=== PATIENT | female | born 1965 | race African-American/Black ===

== ENCOUNTER 2021-11-21 21:41 | Observation (INO) | payer SELFPAY ==
[~2021-11-21] VITALS: Ht 160 cm; Wt 114.6 kg
--- NOTE | 2021-11-21 21:54 | PHYS DOC ---
General Adult HPI: HPI: Patient is a 56 year old here with report of left hand numbness and tingling which began over 24 hours ago. The symptoms have progressively improved, now she reports some mild tingling in her pinky finger and her ring finger. 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 She reports that at 3 PM this afternoon she developed what she felt was some mild drooping of her left face. She reports that she felt like she was "drooling." Symptoms lasted a few seconds and resolved. She denies dizziness, headache, vision loss, fall, head injury. She denies neck or back pain. She denies chest pain, dyspnea, palpitations. She denies difficulty ambulating. She is extremely hypertensive on arrival. She admits that she has a history of hypertension and high cholesterol, she purposely stopped taking her blood pressure medications and cholesterol medications over 5 months ago. She reports that she stopped taking them because she wanted to try to modify her diet and lifestyle in order to improve these problems, but she has not done any of these yet. She does not routinely check her blood pressure at home. She has not contacted her primary care physician to discuss this decision. She denies any previous similar neuro symptoms. Review of Systems: Review of Systems: Constitutional: Denies fever or chills. [] Eyes: Denies change in visual acuity. Denies vision loss HENT: Denies nasal congestion or sore throat. [] Respiratory: Denies cough or shortness of breath. [] Cardiovascular: Denies chest pain or edema. [] GI: Denies abdominal pain, nausea, vomiting Musculoskeletal: Denies back pain or joint pain. [] Integument: Denies rash. [] Neurologic: Denies headache, focal weakness. Denies dizziness, vertigo, head injury, fall, syncope. She reports brief episode of left lower facial weakness, left lower facial tingling and left hand numbness and tingling. Psychiatric: Denies depression or anxiety. [] Heart Score: C/O Chest Pain: No Risk Factors: Risk Factors: DM, Current or recent (<one month) smoker, HTN, HLP, family history of CAD, obesity. Risk Scores: Score 0 - 3: 2.5% MACE over next 6 weeks - Discharge Home Score 4 - 6: 20.3% MACE over next 6 weeks - Admit for Clinical Observation Score 7 - 10: 72.7% MACE over next 6 weeks - Early Invasive Strategies Physical Exam: PE: Constitutional: Well developed, well nourished, no acute distress, non-toxic appearance. [] HENT: Normocephalic, atraumatic, oropharynx is patent and clear, mucous memories are moist. No evidence of facial asymmetry, facial trauma, facial contusion or erythema. TMs are clear bilaterally. Eyes: PERRL, EOMI, conjunctiva normal, no discharge. No nystagmus. Neck: Normal range of motion, no tenderness, supple, no stridor. Achy midline, no JVD Cardiovascular:Heart rate regular rhythm, two radial +2 posterior tibial pulses bilaterally Lungs & Thorax: Bilateral breath sounds clear to auscultation [] Abdomen: Abdomen soft, nondistended, nontender to palpation Skin: Warm, dry, no erythema, no rash. [] Back: No tenderness, no CVA tenderness. [] Extremities: No tenderness, no cyanosis, no clubbing, ROM intact, no edema. No calf tenderness Neurologic: She is awake, alert, oriented x3, cranial nerves II through XII grossly intact, 5 out of 5 motor strength all four extremities, sensation is grossly intact, no limb ataxia, no dysmetria, no pronator drift, speech is clear and fluent, no obvious visual deficit Psychologic: Affect normal, judgement normal, mood normal. [] EKG: EKG: EKG is interpreted at 2154 Rhythm is sinus Rate is 66 bpm [place] is normal No STEMI Radiology/Procedures: Radiology/Procedures: IMAGING REPORT Signed PATIENT: KANE STAFFORD DACCOUNT: [id number] : 1965 LOCATION: ER AGE: 56 SEX: F EXAM STATUS: PRE ER ORD. PHYSICIAN: ODILIA MERCER DO REASON: left hand tingling PROCEDURE: CT HEAD WO CONTRAST Exam: CT head INDICATION: Left hand tingling TECHNIQUE: Sequential axial images through the head were obtained without the administration of IV contrast. Exposure: One or more of the following in the visualized dose reduction techniques were utilized for this examination: 1. Automated exposure control 2. Adjustment of the MA and/or KV according to patient size 3. Use of iterative of reconstructive technique Comparisons: None FINDINGS: No focal parenchymal lesion or hemorrhage is identified. There is no midline shift or sulcal effacement. Mild patchy hypodensity in the periventricular white matter. No acute vascular territory infarction is identified. Mcdonnell-white distinction is preserved. The ventricular system is within normal limits without compression hydrocephalus. The basal cisterns are well maintained. The visualized portions of the paranasal sinuses and mastoid air cells are well- pneumatized. No acute fractures. IMPRESSION: Mild small vessel ischemic change, technically age indeterminate without recent prior imaging. Electronically signed by: Salvador Mcarthur MD (11/21/2021 11:14 PM) [facility] DICTATED and SIGNED BY: SALVADOR MCARTHUR MD DATE: 11/21/21 [id number] 0 Course & Med Decision Making: Course & Med Decision Making Pertinent Labs and Imaging studies reviewed. (See chart for details) Patient had already taken four baby aspirin earlier today. Her blood pressure was initially quite high, but her blood pressure improved spontaneously without intervention. I was able to retrieve her medication list from a local pharmacy. She had previously been on the following regimen: Lisinopril/HCTZ, 20/12.5 mg, carvedilol 6.25 mg twice daily, amlodipine [address] head shows microvascular ischemic disease. She has nonfocal neurologic exam. I have recommended hospitalization, serial neuro exams, neurology consultation and MRI in the morning. She is comfortable with this plan. She is excepted for admission by Dr. White. Cyndi Disclaimer: Cyndi Disclaimer: This electronic medical record was generated, in whole or in part, using a voice recognition dictation system. Departure Departure Impression: Primary Impression: TIA (transient ischemic attack) Additional Impression: Uncontrolled hypertension Disposition: ADMITTED INPATIENT Admitting Physician: ASIA (Dr. White) Condition: STABLE ODILIA MERCER DO Nov 21, 2021 21:53
[2021-11-21 22:33] LABS: BASO # 0.1 x10^3/uL (0.0-0.2); BASO % 1 % (0-3); EOS # 0.2 x10^3/uL (0.0-0.7); EOS % 2 % (0-3); HEMATOCRIT 40.1 % (36.0-47.0); HEMOGLOBIN 12.8 g/dL (12.0-15.5); LYMPH # 4.1 x10^3/uL (1.0-4.8); LYMPH % 34 % (24-48); MEAN CORPUSCULAR HEMOGLOBIN 30 pg (25-35); MEAN CORPUSCULAR HGB CONC 32 g/dL (31-37); MEAN CORPUSCULAR VOLUME 96 fL (79-100); MONO # 0.8 x10^3/uL (0.0-1.1); MONO % 7 % (0-9); NEUT # 6.8 x10^3/uL (1.8-7.7); NEUT % 57 % (31-73); PLATELET COUNT 231 x10^3/uL (140-400); RED BLOOD COUNT 4.19 x10^6/uL (3.50-5.40); RED CELL DISTRIBUTION WIDTH 15.2 % (11.5-14.5); WHITE BLOOD COUNT 12.1 x10^3/uL (4.0-11.0)
[2021-11-21 22:48] LABS: CALCIUM 8.8 mg/dL (8.5-10.1); CREATININE 0.9 mg/dL (0.6-1.0); GFR 64.5; POTASSIUM 4.1 mmol/L (3.5-5.1)
[2021-11-21 22:50] LABS: MAGNESIUM 2.1 mg/dL (1.8-2.4)
--- NOTE | 2021-11-21 23:17 | RAD ---
Exam: CT head INDICATION: Left hand tingling TECHNIQUE: Sequential axial images through the head were obtained without the administration of IV co ntrast. Exposure: One or more of the following in the visualized dose reduction techniques were utilized for this examination: 1. Automated exposure control 2. Adjustment of the MA and/or KV according to patient size 3. Use of iterative of reconstructive technique Comparisons: None FINDINGS: No focal parenchymal lesion or hemorrhage is identified. There is no midline shift or sulcal effaceme nt. Mild patchy hypodensity in the periventricular white matter. No acute vascular territory infarction i s identified. Mcdonnell-white distinction is preserved. The ventricular system is within normal limits without compression hydrocephalus. The basal cisterns are well maintained. The visualized portions of the paranasal sinuses and mastoid air cells are well-pneumatized. No acute fractures. IMPRESSION: Mild small vessel ischemic change, technically age indeterminate without recent prior imaging. Electronically signed by: Salvador Estrada MD (11/21/2021 11:14 PM) [facility]
[2021-11-21] MEDS ORDERED: hydroCHLOROthiazide 12.5 MG CAPSULE PO ONE (23:30)
[2021-11-21] MEDS ORDERED: CARVEDILOL 6.25 MG TABLET. PO ONE (23:30)
[2021-11-21] MEDS ORDERED: LISINOPRIL 10 MG TABLET PO ONE (23:30)
--- NOTE | 2021-11-22 01:31 | EKG ---
[facility] [address] [place] [address] Test Date: 2021-11-21 Test Time: 21:52:42 Pat Name: KANE STAFFORD Department: Room: Gender: F Coal Equipment Operator: : 1965 Requested By: ODILIA MERCER Order Number: [id number] Reading MD: Marquez Guzmán Measurements Intervals [place] Rate: 66 P: NV: QRS: 26 QRSD: 78 T: 11 QT: 354 QTc: 373 Interpretive Statements SINUS ARRHYTHMIA Electronically Signed On 11-23-2021 17:51:42 BOILERMAKER by Marquez Guzmán
[2021-11-22 03:40] VITALS: BP 173/79
--- NOTE | 2021-11-22 05:07 | NUR ---
Pt arrived to room 672 per cart pt ambulated from cart to restroom, pt tele monitor applied vs obtained pt denied pain at this time p oriented to surroundings and call light. Poc explained vs obtained and stable will resume care and continue to monitor pt.
[2021-11-22 07:00] VITALS: BP 167/75
[2021-11-22] MEDS ORDERED: ONDANSETRON PF 4 MG/2 ML VIAL. IVP PRN (07:15)
--- NOTE | 2021-11-22 08:16 | RAD ---
EXAMINATION: US DPLX CAROTID BILAT CLINICAL HISTORY: TIA. TECHNIQUE: Evaluation of the bilateral carotid, vertebral, and subclavian arteries performed with gra y scale, color Doppler, and spectral Doppler sonographic imaging. COMPARISON: None FINDINGS: CCA Peak Systolic Velocity (cm/sec): Right: 97 Left: 86 ICA Peak Systolic Velocity (cm/sec): Right: 96 Left: 116 ICA End Diastolic Velocity (cm/sec): Right: 24 Left: 42 ECA Peak Systolic Velocity (cm/sec): Right: 118 Left: 107 Vertebrals (cm/sec): Right: 62 Left: 40 Subclavians (cm/sec): Right: 92 Left: 89 ICA/CCA Systolic Velocity Ratio: Right: 1.0 Left: 1.4 Plaque distribution: Minimal scattered atherosclerotic plaque bilaterally. IMPRESSION: No evidence of hemodynamically significant stenosis in the bilateral carotid arterial systems. Electronically signed by: Vahe Mae DO (11/22/2021 8:14 AM) [place]
--- NOTE | 2021-11-22 10:34 | PDOC1 ---
History and Physical Date of Admission Date of Admission DATE: 11/22/21 TIME: 10:13 Source Source: Chart review, Patient History of Present Illness History of Present Illness Ms. Metzger, is a 56 year old admti for left hand numbness and tingling nwo almost 2 days ago. Started with face dropping that improved quickly, drooled for minutes, and went away. still left arm weak, but mild tingling in her pinky finger and her ring finger she is guarding that hand, is right-handed. She denies dizziness, headache, vision loss, fall, head injury. She denies neck or back pain. She denies chest pain, dyspnea, palpitations. She denies difficulty ambulating. She was extremely hypertensive int he ER. She admits that she has a history of hypertension and high cholesterol, she purposely stopped taking her blood pressure medications and cholesterol medications in an attempt to lose weight, eat better and get off meds, this was not successful. she only takes 2 or 3 motrin a day for foot pain with working at [employer] her primary care in in [place], that is where her boyfriend lives, her mom is with her today Past Medical History Cardiovascular: HTN, Hyperlipidemia Pulmonary: No pertinent hx GI: No pertinent hx Heme/Onc: No pertinent hx Musculoskeletal: low back pain, Osteoarthritis (feet, takes motrin daily when working at [employer]) Rheumatologic: No pertinent hx Endocrine: Other (pre-DM2) Dermatology: No pertinent hx Past Surgical History Past Surgical History: No pertinent history Family History Family History: No Significant Social History Smoke: No ALCOHOL: social (1 or 2 a few times a week) Current Problem List Problem List Problems Medical Problems: (1) TIA (transient ischemic attack) Status: Acute (2) Uncontrolled hypertension Status: Acute Current Medications Current Medications Current Medications Amlodipine Besylate (Norvasc) 10 mg 1X ONCE PO ; Start 11/21/21 at 23:30; Stop 11/22/21 at 02:28; Status DC Carvedilol (Coreg) 6.25 mg 1X ONCE PO ; Start 11/21/21 at 23:30; Stop 11/22/21 at 02:28; Status DC Lisinopril (Prinivil) 20 mg 1X ONCE PO ; Start 11/21/21 at 23:30; Stop 11/22/21 at 02:28; Status DC Hydrochlorothiazide (Microzide) 12.5 mg 1X ONCE PO ; Start 11/21/21 at 23:30; Stop 11/22/21 at 02:28; Status DC Ondansetron HCl (Zofran) 4 mg PRN Q8HRS PRN IVP NAUSEA/VOMITING; Start 11/22/21 at 07:15; Stop 11/23/21 at 07:14 Active Scripts Active Reported No Known Medications Prior To Admisstion (Info) Each 1 Each Allergies Allergies: Coded Allergies: hydrocodone (Verified Allergy, Intermediate, ITCHING, 11/21/21) ROS General: No: Chills, Night Sweats, Fatigue, Malaise, Appetite, Other PSYCHOLOGICAL ROS: No: Anxiety, Behavioral Disorder, Concentration difficultie, Decreased libido, Depression, Disorientation, Hallucinations, Hostility, Irritablity, Memory difficulties, Mood Swings, Obsessive thoughts, Physical abuse, Sexual abuse, Sleep disturbances, Suicidal ideation, Other Eyes: No Blurry vision, No Decreased vision, No Double vision, No Dry eyes, No Excessive tearing, No Eye Pain, No Itchy Eyes, No Loss of vision, No Photophobia, No Scotomata, No Uses contacts, No Uses glasses, No Other HEENT: YES: Heacaches; No: Visual Changes, Hearing change, Nasal congestion, Nasal discharge, Oral lesions, Sinus pain, Sore Throat, Epistaxis, Sneezing, Snoring, Tinnitus, Vertigo, Vocal changes, Other Respiratory: No: Cough, Hemoptysis, Orthopnea, Pleuritic Pain, Shortness of breath, SOB with excertion, Sputum Changes, Stridor, Tachypnea, Wheezing, Other Cardiovascular: No Chest Pain, No Palpitations, No Orthopnea, No Paroxysmal Noc. Dyspnea, No Edema, No Lt Headedness, No Other Gastrointestinal: No Nausea, No Vomiting, No Abdominal Pain, No Diarrhea, No Constipation, No Melena, No Hematochezia, No Other Genitourinary: No Dysuria, No Frequency, No Incontinence, No Hematuria, No Retention, No Discharge, No Urgency, No Pain, No Flank Pain, No Other, No , No , No , No , No , No , No Musculoskeletal: Yes Muscular Weakness (left hand); No Gait Disturbance, No Joint Pain, No Joint Stiffness, No Joint Swelling, No Muscle Pain, No Pain In:, No Swelling In:, No Other Neurological: No Behavorial Changes, No Bowel/Bladder ControlChng, No Confusion, No Dizziness, No Headaches, No Impaired Coord/balance, No Memory Loss, No Numbness/Tingling, No Seizures, No Speech Problems, No Tremors, No Visual Changes, No Weakness, No Other Skin: Yes Dry Skin, Yes Skin Lesion Changes (toes, ); No Eczema, No Hair Changes, No Lumps, No Mole Changes, No Mottling, No Nail Changes, No Pruritus, No Rash, No Other, No Acne Physical Exam General: Alert, Oriented X3, Cooperative, No acute distress HEENT: Atraumatic, Mucous membr. moist/pink Lungs: Clear to auscultation Heart: RRR, no gallops, murmurs Abdomen: Normal bowel sounds Male Genitals Exam: normal genitalia Rectal Exam: not examined Extremities: No cyanosis, No edema, Normal pulses, Other (left hand weaknes,s numb) Skin: No breakdown, Other (some slight discolation of all toes, near nail bed) Neuro: Normal speech Psych/Mental Status: Mental status NL, Mood NL Vitals Vitals Vital Signs Date Time Temp Pulse Resp B/P (MAP) Pulse Ox O2 Delivery O2 Flow Rate FiO2 11/22/21 07:00 98.3 74 16 167/75 (105) 96 Room Air 98.3 Labs Labs Laboratory Tests Test 11/21/21 22:15 White Blood Count 12.1 x10^3/uL (4.0-11.0) Red Blood Count 4.19 x10^6/uL (3.50-5.40) Hemoglobin 12.8 g/dL (12.0-15.5) Hematocrit 40.1 % (36.0-47.0) Mean Corpuscular Volume 96 fL (79-100) Mean Corpuscular Hemoglobin 30 pg (25-35) Mean Corpuscular Hemoglobin Concent 32 g/dL (31-37) Red Cell Distribution Width 15.2 % (11.5-14.5) Platelet Count 231 x10^3/uL (140-400) Neutrophils (%) (Auto) 57 % (31-73) Lymphocytes (%) (Auto) 34 % (24-48) Monocytes (%) (Auto) 7 % (0-9) Eosinophils (%) (Auto) 2 % (0-3) Basophils (%) (Auto) 1 % (0-3) Neutrophils # (Auto) 6.8 x10^3/uL (1.8-7.7) Lymphocytes # (Auto) 4.1 x10^3/uL (1.0-4.8) Monocytes # (Auto) 0.8 x10^3/uL (0.0-1.1) Eosinophils # (Auto) 0.2 x10^3/uL (0.0-0.7) Basophils # (Auto) 0.1 x10^3/uL (0.0-0.2) Sodium Level 145 mmol/L (136-145) Potassium Level 4.1 mmol/L (3.5-5.1) Chloride Level 107 mmol/L (98-107) Carbon Dioxide Level 25 mmol/L (21-32) Anion Gap 13 (6-14) Blood Urea Nitrogen 17 mg/dL (7-20) Creatinine 0.9 mg/dL (0.6-1.0) Estimated GFR (Cockcroft-Gault) 64.5 Glucose Level 85 mg/dL (70-99) Calcium Level 8.8 mg/dL (8.5-10.1) Magnesium Level 2.1 mg/dL (1.8-2.4) Laboratory Tests Test 11/21/21 22:15 White Blood Count 12.1 x10^3/uL (4.0-11.0) Red Blood Count 4.19 x10^6/uL (3.50-5.40) Hemoglobin 12.8 g/dL (12.0-15.5) Hematocrit 40.1 % (36.0-47.0) Mean Corpuscular Volume 96 fL (79-100) Mean Corpuscular Hemoglobin 30 pg (25-35) Mean Corpuscular Hemoglobin Concent 32 g/dL (31-37) Red Cell Distribution Width 15.2 % (11.5-14.5) Platelet Count 231 x10^3/uL (140-400) Neutrophils (%) (Auto) 57 % (31-73) Lymphocytes (%) (Auto) 34 % (24-48) Monocytes (%) (Auto) 7 % (0-9) Eosinophils (%) (Auto) 2 % (0-3) Basophils (%) (Auto) 1 % (0-3) Neutrophils # (Auto) 6.8 x10^3/uL (1.8-7.7) Lymphocytes # (Auto) 4.1 x10^3/uL (1.0-4.8) Monocytes # (Auto) 0.8 x10^3/uL (0.0-1.1) Eosinophils # (Auto) 0.2 x10^3/uL (0.0-0.7) Basophils # (Auto) 0.1 x10^3/uL (0.0-0.2) Sodium Level 145 mmol/L (136-145) Potassium Level 4.1 mmol/L (3.5-5.1) Chloride Level 107 mmol/L (98-107) Carbon Dioxide Level 25 mmol/L (21-32) Anion Gap 13 (6-14) Blood Urea Nitrogen 17 mg/dL (7-20) Creatinine 0.9 mg/dL (0.6-1.0) Estimated GFR (Cockcroft-Gault) 64.5 Glucose Level 85 mg/dL (70-99) Calcium Level 8.8 mg/dL (8.5-10.1) Magnesium Level 2.1 mg/dL (1.8-2.4) VTE Prophylaxis Ordered VTE Prophylaxis Devices: Yes VTE Pharmacological Prophylaxi: No Assessment/Plan Assessment/Plan TIA w/u CVA, MRI check lipids noncomplaince meds, start anti-htn meds obese, BMI 44 sugar addiction, she drinks a lot of mountain dew. cessation discussed at length, she had tried to quit before and stopped at 2 weeks, I talked abotu how she was almost through the withdrawl phase Justifications for Admission Other Justification JAYNE ALLISON MD Nov 22, 2021 10:34
[2021-11-22 11:00] VITALS: BP 158/68
[2021-11-22] MEDS: ACETAMINOPHEN 325 MG TABLET. PO PRN (13:08)
[2021-11-22 15:00] VITALS: BP 154/74
[2021-11-22] MEDS: ASPIRIN CHEWABLE 81 MG TABLET. PO SCH (18:06)
[2021-11-22 18:38] VITALS: BP 164/75
--- NOTE | 2021-11-22 19:53 | PDOC2 ---
CONSULT Date of Consult Date of Consult DATE: 11/22/21 TIME: 19:52 Reason for Consult Reason for Consult: CVA Identification/Chief Complaint Chief Complaint CVA History of Present Illness Reason for Visit: This patient is 56-year-old woman who presented to emergency room with complaint of left facial numbness, numbness on left side symptoms started over 2 days janet or to presentation. Patient had improvement in symptoms on presentation. Patient currently denies any complaint of headache nausea vomiting chest pain shortness of breath. Patient denied any focal extremity weakness. Patient denied any complaint of neck or back pain. Patient is noncompliant with her medications for blood pressure, cholesterol. Past Medical History Cardiovascular: HTN, Hyperlipidemia Pulmonary: No pertinent hx GI: No pertinent hx Heme/Onc: No pertinent hx Musculoskeletal: low back pain, Osteoarthritis (feet, takes motrin daily when working at [employer]) Rheumatologic: No pertinent hx Endocrine: Other (pre-DM2) Dermatology: No pertinent hx Past Surgical History Past Surgical History: No pertinent history Family History Family History: No Significant Social History No ALCOHOL: social (1 or 2 a few times a week) Current Problem List Problem List Problems Medical Problems: (1) TIA (transient ischemic attack) Status: Acute (2) Uncontrolled hypertension Status: Acute Current Medications Current Medications Current Medications Amlodipine Besylate (Norvasc) 10 mg 1X ONCE PO ; Start 11/21/21 at 23:30; Stop 11/22/21 at 02:28; Status DC Carvedilol (Coreg) 6.25 mg 1X ONCE PO ; Start 11/21/21 at 23:30; Stop 11/22/21 at 02:28; Status DC Lisinopril (Prinivil) 20 mg 1X ONCE PO ; Start 11/21/21 at 23:30; Stop 11/22/21 at 02:28; Status DC Hydrochlorothiazide (Microzide) 12.5 mg 1X ONCE PO ; Start 11/21/21 at 23:30; Stop 11/22/21 at 02:28; Status DC Ondansetron HCl (Zofran) 4 mg PRN Q8HRS PRN IVP NAUSEA/VOMITING; Start 11/22/21 at 07:15; Stop 11/23/21 at 07:14 Acetaminophen (Tylenol) 650 mg PRN Q6HRS PRN PO MILD PAIN / TEMP > 100.3'F Last administered on 11/22/21at 13:08; Start 11/22/21 at 11:15 Atorvastatin Calcium (Lipitor) 20 mg QHS PO ; Start 11/23/21 at 21:00 Aspirin (Aspirin Chewable) 162 mg DAILYWBKFT PO Last administered on 11/22/21at 18:06; Start 11/22/21 at 18:00 Active Scripts Active Reported No Known Medications Prior To Admisstion (Info) Each 1 Each [facility] Allergies Allergies: Coded Allergies: hydrocodone (Verified Allergy, Intermediate, ITCHING, 11/21/21) Physical Exam Physical Exam General no acute distress. HEENT: Normocephalic and atraumatic. NECK: Supple without bruit Respiratory: Clear to auscultation bilaterally Heart: Regular rate and rhythm, S1S2 normal NEUROLOGIC: Mental status Alert oriented. Cranial nerve equally reactive pupils, and intact extraocular movements. No facial asymmetry. Palate elevates and tongue protrudes in midline. Reflexes are 1-2 with flexor plantar responses. Coordination no dysmetria Strength able to move all exts equally. Sensory exam is intact for light touch and pinprick. Gait in bed. A 10-point review of systems was obtained. Other than the history of present illness the remainder of the review of systems is negative. Vitals VITALS Vital Signs Date Time Temp Pulse Resp B/P (MAP) Pulse Ox O2 Delivery O2 Flow Rate FiO2 11/22/21 18:38 98.1 76 20 164/75 (104) 96 Room Air 98.1 Labs Labs Laboratory Tests Test 11/21/21 22:15 White Blood Count 12.1 x10^3/uL (4.0-11.0) Red Blood Count 4.19 x10^6/uL (3.50-5.40) Hemoglobin 12.8 g/dL (12.0-15.5) Hematocrit 40.1 % (36.0-47.0) Mean Corpuscular Volume 96 fL (79-100) Mean Corpuscular Hemoglobin 30 pg (25-35) Mean Corpuscular Hemoglobin Concent 32 g/dL (31-37) Red Cell Distribution Width 15.2 % (11.5-14.5) Platelet Count 231 x10^3/uL (140-400) Neutrophils (%) (Auto) 57 % (31-73) Lymphocytes (%) (Auto) 34 % (24-48) Monocytes (%) (Auto) 7 % (0-9) Eosinophils (%) (Auto) 2 % (0-3) Basophils (%) (Auto) 1 % (0-3) Neutrophils # (Auto) 6.8 x10^3/uL (1.8-7.7) Lymphocytes # (Auto) 4.1 x10^3/uL (1.0-4.8) Monocytes # (Auto) 0.8 x10^3/uL (0.0-1.1) Eosinophils # (Auto) 0.2 x10^3/uL (0.0-0.7) Basophils # (Auto) 0.1 x10^3/uL (0.0-0.2) Sodium Level 145 mmol/L (136-145) Potassium Level 4.1 mmol/L (3.5-5.1) Chloride Level 107 mmol/L (98-107) Carbon Dioxide Level 25 mmol/L (21-32) Anion Gap 13 (6-14) Blood Urea Nitrogen 17 mg/dL (7-20) Creatinine 0.9 mg/dL (0.6-1.0) Estimated GFR (Cockcroft-Gault) 64.5 Glucose Level 85 mg/dL (70-99) Calcium Level 8.8 mg/dL (8.5-10.1) Magnesium Level 2.1 mg/dL (1.8-2.4) Laboratory Tests Test 11/21/21 22:15 White Blood Count 12.1 x10^3/uL (4.0-11.0) Red Blood Count 4.19 x10^6/uL (3.50-5.40) Hemoglobin 12.8 g/dL (12.0-15.5) Hematocrit 40.1 % (36.0-47.0) Mean Corpuscular Volume 96 fL (79-100) Mean Corpuscular Hemoglobin 30 pg (25-35) Mean Corpuscular Hemoglobin Concent 32 g/dL (31-37) Red Cell Distribution Width 15.2 % (11.5-14.5) Platelet Count 231 x10^3/uL (140-400) Neutrophils (%) (Auto) 57 % (31-73) Lymphocytes (%) (Auto) 34 % (24-48) Monocytes (%) (Auto) 7 % (0-9) Eosinophils (%) (Auto) 2 % (0-3) Basophils (%) (Auto) 1 % (0-3) Neutrophils # (Auto) 6.8 x10^3/uL (1.8-7.7) Lymphocytes # (Auto) 4.1 x10^3/uL (1.0-4.8) Monocytes # (Auto) 0.8 x10^3/uL (0.0-1.1) Eosinophils # (Auto) 0.2 x10^3/uL (0.0-0.7) Basophils # (Auto) 0.1 x10^3/uL (0.0-0.2) Sodium Level 145 mmol/L (136-145) Potassium Level 4.1 mmol/L (3.5-5.1) Chloride Level 107 mmol/L (98-107) Carbon Dioxide Level 25 mmol/L (21-32) Anion Gap 13 (6-14) Blood Urea Nitrogen 17 mg/dL (7-20) Creatinine 0.9 mg/dL (0.6-1.0) Estimated GFR (Cockcroft-Gault) 64.5 Glucose Level 85 mg/dL (70-99) Calcium Level 8.8 mg/dL (8.5-10.1) Magnesium Level 2.1 mg/dL (1.8-2.4) Assessment/Plan Assessment/Plan This patient is 56-year-old woman who presented to emergency room with complaint of left facial numbness, numbness on left side symptoms started over 2 days prior to presentation. Patient had improvement in symptoms on presentation. Patient currently denies any complaint of headache nausea vomiting chest pain shortness of breath. Patient denied any focal extremity weakness. Patient denied any complaint of neck or back pain. Patient is noncompliant with her medications for blood pressure, cholesterol. Patient was evaluated for CVA. Patient had improvement in symptoms. Patient had CT scan done brain did not show any evidence of acute intracranial etiology changes noted for chronic small vessel ischemic disease. Patient had a carotid Doppler did not show any evidence of hemodynamically significant stenosis. Will get MRI brain to further evaluate for acute intracranial etiology. PT OT evaluation. Hyperlipidemia started on statin. Hypertension continue treat and monitor. Continue medical management. Plan discussed at length. Thank you for allowing me to take part in this patient's care. Please not hesitate to contact me with questions. Transcribed using dictation device. The dictation could contain irregularities inherent in the voice to text conversion software, which may not be detected during the document review process. Please contact our office in case of any confusion or for any clarification, as needed. BEA CAZARES MD Nov 22, 2021 19:53
[2021-11-22 22:55] VITALS: BP 175/92
[2021-11-23] VITALS (7 sets, daily range): BP systolic 165–180; BP diastolic 67–88
[2021-11-23] MEDS: ACETAMINOPHEN 325 MG TABLET. PO PRN (06:08)
[2021-11-23 06:11] LABS: CHOLESTEROL/HDL RATIO 4.7
[2021-11-23] MEDS: ASPIRIN CHEWABLE 81 MG TABLET. PO SCH (08:18)
[2021-11-23] MEDS: BUTALB/APAP/CAFEIN 50/325/40MG TABLET. PO PRN (11:29)
--- NOTE | 2021-11-23 12:27 | PDOC ---
[facility] PROGRESS NOTE Date of Service DOS: DATE: 11/23/21 TIME: 12:26 Chief Complaint Chief Complaint CVA, MRI pending, still has left facial droop and left hand weakness, left hemiparesis, check lipids noncomplaince meds, start anti-htn meds obese, BMI 44 sugar diet, had headache last night, caffeine withdrawl, given a Pepsi, try again to quit History of Present Illness History of Present Illness feels well has worked with PT, needs OT, and modality, DC soon start norvasc, low dose BP has been trendign up Vitals/I&O Vitals/I&O: Vital Signs Date Time Temp Pulse Resp B/P (MAP) Pulse Ox O2 Delivery O2 Flow Rate FiO2 11/23/21 11:30 68 180/83 11/23/21 11:00 97.3 16 97 Room Air 97.3 I & O0 11/22/21 11/22/21 11/23/21 15:00 23:00 07:00 Intake Total 420 ml 100 ml Balance 420 ml 100 ml Physical Exam General: Alert, Oriented X3, Cooperative, No acute distress Abdomen: Normal bowel sounds Extremities: No cyanosis, No edema, Normal pulses, Other (left hand weaknes,s numb) Skin: No breakdown, Other (some slight discolation of all toes, near nail bed) Labs Labs: Laboratory Tests Test 11/23/21 04:00 Triglycerides Level 69 mg/dL (0-150) Cholesterol Level 207 mg/dL (0-200) LDL Cholesterol, Calculated 149 mg/dL (0-100) VLDL Cholesterol, Calculated 14 mg/dL (0-40) Non-HDL Cholesterol Calculated 163 mg/dL (0-129) HDL Cholesterol 44 mg/dL (40-60) Cholesterol/HDL Ratio 4.7 Assessment and Plan Assessmemt and Plan Problems Medical Problems: (1) TIA (transient ischemic attack) Status: Acute (2) Uncontrolled hypertension Status: Acute Comment Review of Relevant I have reviewed the following items sapna (where applicable) has been applied. Medications: Current Medications Medications (Trade) Dose Ordered Sig/Eugenio Route PRN Reason Start Time Stop Time Status Last Admin Dose Admin Aspirin (Aspirin Chewable) 162 mg DAILYWBKFT PO 11/22/21 18:00 11/23/21 08:18 Amlodipine Besylate (Norvasc) 2.5 mg DAILY PO 11/23/21 12:00 11/23/21 11:30 Acetaminophen/ Butalbital/ Caffeine (Fioricet) 1 tab PRN Q6HRS PRN PO MIGRAINE HEADACHE 11/23/21 11:15 11/23/21 11:29 Justifications for Admission Other Justification JAYNE ALLISON MD Nov 23, 2021 12:27
--- NOTE | 2021-11-23 12:46 | PDOC ---
PROGRESS NOTES DOS: DATE: 11/23/21 TIME: 12:46 Assessment Problems Medical Problems: (1) TIA (transient ischemic attack) Status: Acute (2) Uncontrolled hypertension Status: Acute Plan This patient is 56-year-old woman who presented to emergency room with complaint of left facial numbness, numbness on left side symptoms started over 2 days prior to presentation. Patient had improvement in symptoms on presentation. Patient currently denies any complaint of headache nausea vomiting chest pain shortness of breath. Patient denied any focal extremity weakness. Patient rodney ed any complaint of neck or back pain. Patient is noncompliant with her medications for blood pressure, cholesterol. Patient was evaluated for CVA. Patient had improvement in symptoms. Patient had CT scan done brain did not show any evidence of acute intracranial etiology changes noted for chronic small vessel ischemic disease. Patient had a carotid Doppler did not show any evidence of hemodynamically significant stenosis. Will get MRI brain to further evaluate for acute intracranial etiology. PT OT evaluation. Hyperlipidemia started on statin. Neuro exam stable Hypertension continue treat and monitor. Continue medical management. Plan discussed at length. Subjective Patient resting in bed. Family at bedside. She denies any complaint of headache nausea vomiting. Chest pain Objective Vital Signs Date Time Temp Pulse Resp B/P (MAP) Pulse Ox O2 Delivery O2 Flow Rate FiO2 11/23/21 11:30 68 180/83 11/23/21 11:00 97.3 16 97 Room Air 97.3 Intake and Output 11/23/21 06:59 Intake Total 520 ml Balance 520 ml Intake Oral 520 ml PHYSICAL EXAM General: No acute distress. Eye: Pupils are equal, round and reactive to light HENT: Normocephalic. Neck: Supple, Non-tender, No carotid bruit, No jugular venous distention Respiratory: Lungs are clear to auscultation, Respirations are non-labored Cardiovascular: Normal rate, Regular rhythm, No murmur, Good pulses equal in all extremities Gastrointestinal: Soft, Non-tender, Non-distended, Normal bowel sounds. Neurological Exam: Mental status: Alert,oriented, able to follow simple commands. Speech: no dysarthria Cranial Nerves: pupils round and reactive to light, extraocular movements intact normal facial sensation in ophthalmic, maxillary, and mandibular dermatomes, muscles of mastication 5/5 bilaterally no facial droop, eye closure and eyebrow elevation symmetric symmetric palatal elevation tongue midline, no fasciculations Motor: No resting, tremor. Good strength, normal coordination. Sensory: Sensation was intact to light touch, pain, in upper and lower extremities. Reflexes: 1-2/4. Toes were downgoing. Gait in bed. Review of Relevant I have reviewed the following items sapna (where applicable) has been applied. Labs Laboratory Tests Test 11/21/21 22:15 11/23/21 04:00 White Blood Count 12.1 x10^3/uL (4.0-11.0) Red Blood Count 4.19 x10^6/uL (3.50-5.40) Hemoglobin 12.8 g/dL (12.0-15.5) Hematocrit 40.1 % (36.0-47.0) Mean Corpuscular Volume 96 fL (79-100) Mean Corpuscular Hemoglobin 30 pg (25-35) Mean Corpuscular Hemoglobin Concent 32 g/dL (31-37) Red Cell Distribution Width 15.2 % (11.5-14.5) Platelet Count 231 x10^3/uL (140-400) Neutrophils (%) (Auto) 57 % (31-73) Lymphocytes (%) (Auto) 34 % (24-48) Monocytes (%) (Auto) 7 % (0-9) Eosinophils (%) (Auto) 2 % (0-3) Basophils (%) (Auto) 1 % (0-3) Neutrophils # (Auto) 6.8 x10^3/uL (1.8-7.7) Lymphocytes # (Auto) 4.1 x10^3/uL (1.0-4.8) Monocytes # (Auto) 0.8 x10^3/uL (0.0-1.1) Eosinophils # (Auto) 0.2 x10^3/uL (0.0-0.7) Basophils # (Auto) 0.1 x10^3/uL (0.0-0.2) Sodium Level 145 mmol/L (136-145) Potassium Level 4.1 mmol/L (3.5-5.1) Chloride Level 107 mmol/L (98-107) Carbon Dioxide Level 25 mmol/L (21-32) Anion Gap 13 (6-14) Blood Urea Nitrogen 17 mg/dL (7-20) Creatinine 0.9 mg/dL (0.6-1.0) Estimated GFR (Cockcroft-Gault) 64.5 Glucose Level 85 mg/dL (70-99) Calcium Level 8.8 mg/dL (8.5-10.1) Magnesium Level 2.1 mg/dL (1.8-2.4) Triglycerides Level 69 mg/dL (0-150) Cholesterol Level 207 mg/dL (0-200) LDL Cholesterol, Calculated 149 mg/dL (0-100) VLDL Cholesterol, Calculated 14 mg/dL (0-40) Non-HDL Cholesterol Calculated 163 mg/dL (0-129) HDL Cholesterol 44 mg/dL (40-60) Cholesterol/HDL Ratio 4.7 Laboratory Tests Test 11/23/21 04:00 Triglycerides Level 69 mg/dL (0-150) Cholesterol Level 207 mg/dL (0-200) LDL Cholesterol, Calculated 149 mg/dL (0-100) VLDL Cholesterol, Calculated 14 mg/dL (0-40) Non-HDL Cholesterol Calculated 163 mg/dL (0-129) HDL Cholesterol 44 mg/dL (40-60) Cholesterol/HDL Ratio 4.7 Medications Current Medications Amlodipine Besylate (Norvasc) 10 mg 1X ONCE PO ; Start 11/21/21 at 23:30; Stop 11/22/21 at 02:28; Status DC Carvedilol (Coreg) 6.25 mg 1X ONCE PO ; Start 11/21/21 at 23:30; Stop 11/22/21 at 02:28; Status DC Lisinopril (Prinivil) 20 mg 1X ONCE PO ; Start 11/21/21 at 23:30; Stop 11/22/21 at 02:28; Status DC Hydrochlorothiazide (Microzide) 12.5 mg 1X ONCE PO ; Start 11/21/21 at 23:30; Stop 11/22/21 at 02:28; Status DC Ondansetron HCl (Zofran) 4 mg PRN Q8HRS PRN IVP NAUSEA/VOMITING; Start 11/22/21 at 07:15; Stop 11/23/21 at 07:14; Status DC Acetaminophen (Tylenol) 650 mg PRN Q6HRS PRN PO MILD PAIN / TEMP > 100.3'F Last administered on 11/23/21at 06:08; Start 11/22/21 at 11:15 Atorvastatin Calcium (Lipitor) 20 mg QHS PO ; Start 11/23/21 at 21:00 Aspirin (Aspirin Chewable) 162 mg DAILYWBKFT PO Last administered on 11/23/21at 08:18; Start 11/22/21 at 18:00 Amlodipine Besylate (Norvasc) 2.5 mg DAILY PO Last administered on 11/23/21at 11:30; Start 11/23/21 at 12:00 Acetaminophen/ Butalbital/ Caffeine (Fioricet) 1 tab PRN Q6HRS PRN PO MIGRAINE HEADACHE Last administered on 11/23/21at 11:29; Start 11/23/21 at 11:15 Active Scripts Active Reported No Known Medications Prior To Admisstion (Info) Each 1 Each Vitals/I & O Vital Sign - Last 24 Hours 11/22/21 11/22/21 11/22/21 11/22/21 15:00 18:38 20:00 22:55 Temp 98.1 98.1 97.9 98.1 98.1 97.9 Pulse 74 76 63 Resp 18 20 18 B/P (MAP) 154/74 (100) 164/75 (104) 175/92 (119) Pulse Ox 98 96 98 O2 Delivery Room Air Room Air Room Air Room Air 11/23/21 11/23/21 11/23/21 11/23/21 02:35 05:17 06:35 08:00 Temp 97.9 97.8 97.9 97.8 Pulse 60 68 Resp 20 18 B/P (MAP) 179/86 (117) 166/86 (112) 180/83 (115) Pulse Ox 95 96 O2 Delivery Room Air Room Air Room Air 11/23/21 11/23/21 11:00 11:30 Temp 97.3 97.3 Pulse 57 68 Resp 16 B/P (MAP) 179/82 (114) 180/83 Pulse Ox 97 O2 Delivery Room Air Intake and Output 11/22/21 11/22/21 11/23/21 14:59 22:59 06:59 Intake Total 420 ml 100 ml Balance 420 ml 100 ml Justicifation of Admission Dx: Justifications for Admission: Justification of Admission Dx: Yes Stroke - Ischemic: Stroke-Ischemic BEA CAZARES MD Nov 23, 2021 12:46
[2021-11-23] MEDS ORDERED: ATORVASTATIN CALCIUM 20 MG TABLET PO SCH (21:00)
[2021-11-24 02:50] VITALS: BP 154/72
[2021-11-24] MEDS: BUTALB/APAP/CAFEIN 50/325/40MG TABLET. PO PRN (04:02)
[2021-11-24 04:42] LABS: BILIRUBIN,URINE NEGATIVE (NEG); CLARITY,URINE CLEAR; COLOR,URINE YELLOW
[2021-11-24 04:43] LABS: BACTERIA,URINE FEW /HPF (0-FEW); NITRITE,URINE NEGATIVE (NEG); PH,URINE 6.5 (<5.0-8.0); PROTEIN,URINE NEGATIVE (NEG-TRACE); RBC,URINE OCC /HPF (0-2); UROBILINOGEN,URINE 0.2 mg/dL (0.2 mg/dL)
[2021-11-24 07:00] VITALS: BP 181/91
[2021-11-24] MEDS: ASPIRIN CHEWABLE 81 MG TABLET. PO SCH (08:00)
--- NOTE | 2021-11-24 10:51 | PDOC ---
PROGRESS NOTES Date of Service DATE: 11/24/21 TIME: 10:47 Assessment Problems Medical Problems: (1) TIA (transient ischemic attack) Status: Acute (2) Uncontrolled hypertension Status: Acute Possible transient ischemic attack, this probably is just hypertensive encephalopathy which has resolved She actually describes symptoms of a left cubital tunnel syndrome. Plan Await brain MRI Discharge if negative and blood pressure stable Aspirin, statin, antihypertensives Follow-up with neurology as needed Subjective No complaints except some numbness in the fourth and fifth digits of the left hand Objective Vital Signs Date Time Temp Pulse Resp B/P (MAP) Pulse Ox O2 Delivery O2 Flow Rate FiO2 11/24/21 08:46 67 181/91 11/24/21 07:00 97.8 20 96 Room Air 97.8 Intake and Output 11/24/21 07:00 Intake Total 720 ml Balance 720 ml Intake Oral 720 ml # Voids 2 PHYSICAL EXAM Alert. Oriented to time, place and person. PERRL. EOMI. CN: no focal findings. Muscle tone: normal. Muscle strength: 5/5 DTR: 2+ Plantar reflex: Flexor Gait: not examined in bed. Sensory exam: no abnormal findings. No cerebellar signs elicited. Review of Relevant I have reviewed the following items sapna (where applicable) has been applied. Labs Laboratory Tests Test 11/23/21 04:00 11/24/21 04:03 Triglycerides Level 69 mg/dL (0-150) Cholesterol Level 207 mg/dL (0-200) LDL Cholesterol, Calculated 149 mg/dL (0-100) VLDL Cholesterol, Calculated 14 mg/dL (0-40) Non-HDL Cholesterol Calculated 163 mg/dL (0-129) HDL Cholesterol 44 mg/dL (40-60) Cholesterol/HDL Ratio 4.7 Urine Collection Type Unknown Urine Color Yellow Urine Clarity Clear Urine pH 6.5 (<5.0-8.0) Urine Specific [place] 1.015 (1.000-1.030) Urine Protein Negative mg/dL (NEG-TRACE) Urine Glucose (UA) Negative mg/dL (NEG) Urine Ketones (Stick) Negative mg/dL (NEG) Urine Blood Trace (NEG) Urine Nitrite Negative (NEG) Urine Bilirubin Negative (NEG) Urine Urobilinogen Dipstick 0.2 mg/dL (0.2 mg/dL) Urine Leukocyte Esterase Negative (NEG) Urine RBC Occ /HPF (0-2) Urine WBC 1-4 /HPF (0-4) Urine Squamous Epithelial Cells Few /LPF Urine Bacteria Few /HPF (0-FEW) Urine Mucus Slight /LPF Laboratory Tests Test 11/24/21 04:03 Urine Collection Type Unknown Urine Color Yellow Urine Clarity Clear Urine pH 6.5 (<5.0-8.0) Urine Specific [place] 1.015 (1.000-1.030) Urine Protein Negative mg/dL (NEG-TRACE) Urine Glucose (UA) Negative mg/dL (NEG) Urine Ketones (Stick) Negative mg/dL (NEG) Urine Blood Trace (NEG) Urine Nitrite Negative (NEG) Urine Bilirubin Negative (NEG) Urine Urobilinogen Dipstick 0.2 mg/dL (0.2 mg/dL) Urine Leukocyte Esterase Negative (NEG) Urine RBC Occ /HPF (0-2) Urine WBC 1-4 /HPF (0-4) Urine Squamous Epithelial Cells Few /LPF Urine Bacteria Few /HPF (0-FEW) Urine Mucus Slight /LPF Medications Current Medications Amlodipine Besylate (Norvasc) 10 mg 1X ONCE PO ; Start 11/21/21 at 23:30; Stop 11/22/21 at 02:28; Status DC Carvedilol (Coreg) 6.25 mg 1X ONCE PO ; Start 11/21/21 at 23:30; Stop 11/22/21 at 02:28; Status DC Lisinopril (Prinivil) 20 mg 1X ONCE PO ; Start 11/21/21 at 23:30; Stop 11/22/21 at 02:28; Status DC Hydrochlorothiazide (Microzide) 12.5 mg 1X ONCE PO ; Start 11/21/21 at 23:30; Stop 11/22/21 at 02:28; Status DC Ondansetron HCl (Zofran) 4 mg PRN Q8HRS PRN IVP NAUSEA/VOMITING; Start 11/22/21 at 07:15; Stop 11/23/21 at 07:14; Status DC Acetaminophen (Tylenol) 650 mg PRN Q6HRS PRN PO MILD PAIN / TEMP > 100.3'F Last administered on 11/23/21at 06:08; Start 11/22/21 at 11:15 Atorvastatin Calcium (Lipitor) 20 mg QHS PO Last administered on 11/23/21at 21:36; Start 11/23/21 at 21:00 Aspirin (Aspirin Chewable) 162 mg DAILYWBKFT PO Last administered on 11/24/21at 08:00; Start 11/22/21 at 18:00 Amlodipine Besylate (Norvasc) 2.5 mg DAILY PO Last administered on 11/24/21at 08:46; Start 11/23/21 at 12:00 Acetaminophen/ Butalbital/ Caffeine (Fioricet) 1 tab PRN Q6HRS PRN PO MIGRAINE HEADACHE Last administered on 11/24/21at 04:02; Start 11/23/21 at 11:15 Active Scripts Active Reported No Known Medications Prior To Admisstion (Info) Each 1 Each Vitals/I & O Vital Sign - Last 24 Hours 11/23/21 11/23/21 11/23/21 11/23/21 11:00 11:30 15:00 18:42 Temp 97.3 97.9 98.3 97.3 97.9 98.3 Pulse 57 68 65 78 Resp 16 18 18 B/P (MAP) 179/82 (114) 180/83 173/75 (107) 173/88 (116) Pulse Ox 97 97 96 O2 Delivery Room Air Room Air Room Air 11/23/21 11/23/21 11/24/21 11/24/21 20:15 23:25 02:50 07:00 Temp 97.9 97.9 97.8 97.9 97.9 97.8 Pulse 66 67 67 Resp 18 20 20 B/P (MAP) 165/67 (99) 154/72 (99) 181/91 (121) Pulse Ox 97 96 96 O2 Delivery Room Air Room Air Room Air Room Air 11/24/21 08:46 Pulse 67 B/P (MAP) 181/91 Intake and Output 11/23/21 11/23/21 11/24/21 15:00 23:00 07:00 Intake Total 180 ml 540 ml Balance 180 ml [address] head, 11/21, 23:11 INDICATION: Left hand tingling TECHNIQUE: Sequential axial images through the head were obtained without the administration of IV contrast. Exposure: One or more of the following in the visualized dose reduction techniques were utilized for this examination: 1. Automated exposure control 2. Adjustment of the MA and/or KV according to patient size 3. Use of iterative of reconstructive technique Comparisons: None FINDINGS: No focal parenchymal lesion or hemorrhage is identified. There is no midline shift or sulcal effacement. Mild patchy hypodensity in the periventricular white matter. No acute vascular territory infarction is identified. Mcdonnell-white distinction is preserved. The ventricular system is within normal limits without compression hydrocephalus. The basal cisterns are well maintained. The visualized portions of the paranasal sinuses and mastoid air cells are well- pneumatized. No acute fractures. IMPRESSION: Mild small vessel ischemic change, technically age indeterminate without recent prior imaging. US DPLX CAROTID BILAT, 11/22/2021 8:14 AM CLINICAL HISTORY: TIA. TECHNIQUE: Evaluation of the bilateral carotid, vertebral, and subclavian arteries performed with mcdonnell scale, color Doppler, and spectral Doppler sonographic imaging. COMPARISON: None FINDINGS: CCA Peak Systolic Velocity (cm/sec): Right: 97 Left: 86 ICA Peak Systolic Velocity (cm/sec): Right: 96 Left: 116 ICA End Diastolic Velocity (cm/sec): Right: 24 Left: 42 ECA Peak Systolic Velocity (cm/sec): Right: 118 Left: 107 Vertebrals (cm/sec): Right: 62 Left: 40 Subclavians (cm/sec): Right: 92 Left: 89 ICA/CCA Systolic Velocity Ratio: Right: 1.0 Left: 1.4 Plaque distribution: Minimal scattered atherosclerotic plaque bilaterally. IMPRESSION: No evidence of hemodynamically significant stenosis in the bilateral carotid arterial systems. Justicifation of Admission Dx: Justifications for Admission: Justification of Admission Dx: Yes Stroke - Ischemic: Stroke-Ischemic JOSE NARANJO MD Nov 24, 2021 10:51
[2021-11-24] MEDS ORDERED: AMLO-186 PO (10:54)
[2021-11-24] MEDS ORDERED: ATOR20TA58 PO (10:54)
[2021-11-24] MEDS ORDERED: BUTA1TAB23 PO (10:54)
[2021-11-24 10:55] VITALS: BP 160/82
--- NOTE | 2021-11-24 10:56 | SNU/HH DC ---
DISCHARGE WITH HOME HEALTH DISCHARGE INFORMATION: Final Diagnosis: Problems Medical Problems: (1) TIA (transient ischemic attack) Status: Acute (2) Uncontrolled hypertension Status: Acute Condition on Discharge: Stable CODE STATUS: Code Status: Full HOME HEALTH: Face to Face: I certify this patient is under my care and that I, or a nurse practitioner or physician's assistant loan processor working with me, had a face to face encounter that meets the physician face to face encounter requirements with this patient on []. Medical Complications: Other (Resolving TIA) Custodial For: Assess & Educate Safety RN For Eval/Treatment: Yes Physical Therapy For: Evalulation/Treatment Occupational Therapy For: Evaluation/Treatment Speech Language Pathology For: Evaluation/Treatment Home Health Aide For: Self-care DRILLING MACHINE RUNNER For: Community Resources Pt Meets Homebound Status: Poor coordination w/ amb. POST DISCHARGE ORDERS: DIET AFTER DISCHARGE: Cardiac CERTIFICATION STATEMENT: Certification Statement: Certification Statement: Based on the above finding, I certify that this patient is confined to the home and needs intermittent care home care, physical therapy and/or speech therapy, or continues to need occupational therapy.~ This patient is under my care, and I have initiated the establishment of the plan of care.~ This patient will be followed by myself or a community physician who will periodically review the plan of care. Home Meds Active Scripts Butalb/Acetaminophen/Caffeine ([id number] [id number]) 1 Each Tablet, 1 TAB PO PRN Q6HRS PRN for MIGRAINE HEADACHE for 10 Days, #20 TAB Prov:SUZAN JORDAN III DO 11/24/21 Reported Medications Info (NO KNOWN MEDICATIONS PRIOR TO ADMISSTION) Each, 1 EACH for , EACH 11/22/21 SUZAN JORDAN III DO Nov 24, 2021 10:56
--- NOTE | 2021-11-24 12:00 | NUR ---
SS following for discharge planning. SS reviewed pt chart and discussed with pt RN. Pt is from home with spouse and is currently on room air. Neurology consulted. PT/OT ordered. Brain MRI ordered. PO diet. Discharge order on the chart for home with home healthcare if MRI is okay. Self pay. Med Assist following. SS met with pt and spouse in room to discuss discharge planning. 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 Pt declining shen home healthcare referral at this time. Pt's RN notified. SS will continue to follow for discharge planning.
[2021-11-24] MEDS ORDERED: ASPI325T8 PO (12:11)
--- NOTE | 2021-11-24 12:29 | DS ---
DATE OF DISCHARGE: 11/24/2021 ADMISSION DIAGNOSIS: Transient ischemic attack due to stroke. DISCHARGE DIAGNOSES: Resolving transient ischemic attack. HOSPITAL COURSE: The patient is a pleasant, middle-aged female who presented with some slurred speech and weakness. We admitted her. Suspect she had a TIA. We gave her aspirin. Consulted Neurology. Today, I saw and examined her. She is at her baseline. Neurology has ordered an MRI. If the MRI is negative, we plan to discharge. DISPOSITION: Home. ACTIVITY: As tolerated. DIET: Low sodium. MEDICATIONS: Zocor 20 a day, aspirin 325 a day and continue her other home medications. TOTAL TIME: [address]: Vargas TID: [id number]
--- NOTE | 2021-11-24 14:56 | RAD ---
MRI brain without contrast HISTORY: Transient ischemic attack. COMPARISON: CT head November 21, 2021 FINDINGS: No acute ischemic infarction. No cytotoxic edema of the brain evident on the DWI/ADC sequen wilfredo. No vasogenic edema of the brain. No white matter lesion. No brain atrophy evident. Tiny cyst or dilated perivascular space left basal ganglia axial T2-weighted image 14, an anatomic variant. Mild h yperostosis frontalis interna midline frontal calvarium an anatomic variant. No intracranial hemorrha ge, mass, hydrocephalus, extra-axial fluid collections or infarction. Orbits and mastoids are unremar kable. Maxillary sinus cysts and mucosal thickening along the floor of the sinuses. IMPRESSION: Normal MRI brain. Electronically signed by: Yury Singh MD (11/24/2021 2:54 PM) [facility]
[2021-11-24 15:00] VITALS: BP 164/80
--- NOTE | 2021-11-24 18:19 | NUR ---
patient discharged to home with family. taken out in wheelchair.
== END 2021-11-24 17:30 | disposition home or self-care (01) ==
LOC: ER 21:41 → INTOOBSV 11-22 00:25 → 6 SOUTH 11-22 00:25
PROVIDERS: ADMIT Internal Medicine; ATTEND Internal Medicine
DX: G45.9 Transient cerebral ischemic attack, unspecified (principal); I10 Essential (primary) hypertension; E11.9 Type 2 diabetes mellitus without complications; E66.9 Obesity, unspecified; E78.00 Pure hypercholesterolemia, unspecified; E78.5 Hyperlipidemia, unspecified; G81.94 Hemiplegia, unspecified affecting left nondominant side; M19.90 Unspecified osteoarthritis, unspecified site; I63.9 Cerebral infarction, unspecified; R29.810 Facial weakness; Z68.41 Body mass index [BMI] 40.0-44.9, adult; R29.700 NIHSS score 0; Z86.73 Personal history of transient ischemic attack (TIA), and cerebral infarction without residual deficits; Z91.14 Patient's other noncompliance with medication regimen; Z79.899 Other long term (current) drug therapy; Z98.890 Other specified postprocedural states
CPT/HCPCS: 36415; 70450; 70551; 80048; 80061; 81001; 83735; 85025; 93005; 93306; 93880; 97161; 99285; G0378; G0379; C8929